=== PATIENT | male | born 1990 | race Caucasian/White ===

== ENCOUNTER 2019-07-24 10:05 | Emergency (ER) | payer BC, SELFPAY ==
--- NOTE | ~2019-07-24 | XR_ITS ---
EXAMINATION: XR chest 2V DATE: 07/24/2019 10:47 INDICATION: Cough and hemoptysis TECHNIQUE: PA and lateral views of the chest are obtained. COMPARISON: 02/17/2014 FINDINGS: The lungs are free of acute opacities. There is no pleural effusion or pneumothorax. The ca rdiomediastinal silhouette is normal. The visualized bones and soft tissues are unremarkable. IMPRESSION: 1. No acute cardiopulmonary abnormality. Reviewed, dictated and finalized at location A.
[2019-07-24 10:20] VITALS: BP 118/72; PULSE 67; RESP 18; TEMP 36.9; O2SAT 100
[2019-07-24 10:48] LABS: Basophils Percent Auto 0.4 % (0.2-1.2); Eosinophils Absolute Auto 0.2 K/mm3 (0-0.3); Eosinophils Percent Auto 4.9 % (0-4.4); Hematocrit 43.3 % (42.0-52.0); Hemoglobin 14.6 g/dL (14.0-18.0); Immature Granulocyte Absolute 0.01 K/mm3 (0.00-0.031); Immature Granulocyte Percent A 0.2 % (0-0.5); Lymphocytes Absolute Auto 0.98 K/mm3 (0.9-3.2); Lymphocytes Percent Auto 20.7 % (18.3-44.2); Mean Corpuscular HGB Conc 33.7 g/dl (32-36); Mean Corpuscular Hemoglobin 30.3 pg (26-34); Mean Corpuscular Volume 89.8 fl (80-100); Mean Platelet Volume 10.8 fl (7.4-10.4); Monocytes Absolute Auto 0.5 K/mm3 (0.1-0.6); Neutrophils Percent Auto 62.8 % (45.5-73.1); Platelet Count Result 158 k/mm3 (150-375); Red Blood Count 4.82 M/mm3 (4.6-6.20); White Blood Count 4.7 K/mm3 (4.5-10.0)
--- NOTE | 2019-07-24 10:52 | ED.GENADULT ---
HPI - General Adult General Chief complaint: Unspecified Stated complaint: COUGH, HEMOPTYSIS Time Seen by Provider: 07/24/19 10:52 Source: patient Mode of arrival: ambulatory Limitations: no limitations History of Present Illness HPI narrative: Pt is a 28 y/o male who presents to the ED with c/o hemoptysis that started this morning. Pt has a H/o asthma and sleep apnea and wears a CPAP at night. He states that he woke up and coughed this morning and about 15 minutes later he started coughing up blood. He states that he had blood in his tissue paper and 6-7 times, but he denies coughing up blood clots. He has not had an episode since this morning. He denies a H/O of TB. Pt states that he sees an ENT sleep specialist for his sleep apnea. Pt denies CP or a fever. MD complaint: Hemoptysis Onset (ago): hour(s) (this morning) Location: mouth Associated symptoms: cough Related Data Allergies Allergy/AdvReac Type Severity Reaction Status Date / Time Penicillins Allergy Mild RASH Unverified 07/24/19 10:25 Review of Systems Review of Systems: All systems reviewed & are unremarkable except as noted in HPI and below Constitutional: Constitutional: Denies fever(s) Cardiovascular: Cardiovascular: Denies chest pain Respiratory: Respiratory: Reports cough and Reports hemoptysis PMFSH Past Medical History Medical History (Updated 07/24/19 @ 12:11 by Nirav Colin MD) Asthma FRANCIS on CPAP Surgical History Surgical History (Updated 07/24/19 @ 11:04 by Gurmeet Whiting) No significant past surgical history Social History Social History (Updated 07/24/19 @ 11:04 by Gurmeet Whiting) Smoking status: Never smoker Gender identity (if verbalized by the patient): Male Exam Const: General: healthy appearing, no acute distress and well developed Nutritional Appearance: well nourished Orientation/consciousness: patient oriented x3 (alert) and Other orientation findings (Alert) Limitations: no limitations HENMT: Head: normocephalic and atraumatic Ears: external ears normal General nose exam: No nasal discharge present and no epistaxis Face and sinus: face symmetric Mouth: Yes lip normal, Yes tongue normal and Yes moist mucous membranes Throat: other (No exudate, no erythema) Eyes: Conjunctivae: conjunctivae normal Sclera: sclerae normal EOM: EOMs intact bilaterally Neck: Neck: full ROM, no lymphadenopathy and supple Thyroid: thyroid normal Chest: Chest palpation & inspection: no tenderness Resp: Effort & Inspection: normal respiratory effort Auscultation: clear to auscultation bilaterally, no rales, no rhonchi, no wheezes and other (breath sounds equal) Cardio: Rate: regular rate Rhythm: regular rhythm Heart sounds: no gallops and no murmurs GI: Inspection: non-distended Back/Spine/Pelvis: Thoracic/Lumbar Spine: thoracic and lumbar spine normal to inspection Skin: General skin exam: normal color and no rashes or lesions noted Neuro: General: patient oriented x3 (alert), moves all extremities and no focal motor deficits Cranial nerves: Yes facial symmetry Speech: normal speech Motor exam (neuro): Motor abnormalities not present Extrem: General: normal to inspection, full ROM and no pedal edema Psych: Affect: normal affect Course Vital Signs Vital signs: Vital Signs Temperature 36.9 C 07/24/19 10:20 Pulse Rate 67 07/24/19 10:20 Respiratory Rate 18 07/24/19 10:20 Blood Pressure 118/72 07/24/19 10:20 Pulse Oximetry 100 07/24/19 10:20 Temperature 36.9 C 07/24/19 10:20 Pulse Rate 60 07/24/19 11:43 Respiratory Rate 16 07/24/19 11:43 Blood Pressure 109/69 07/24/19 11:43 Pulse Oximetry 100 07/24/19 11:43 Medical Decision Making Vital Signs Vital Signs: Vital Signs Temperature 36.9 C 07/24/19 10:20 Pulse Rate 67 07/24/19 10:20 Respiratory Rate 18 07/24/19 10:20 Blood Pressure 118/72 07/24/19 10:20 Pulse Oximetry 100 07/24/19 10:20 Temperature
[2019-07-24 10:58] LABS: Prothrombin Time 13.1 Seconds (11.1-14.7)
[2019-07-24 11:43] VITALS: BP 109/69; PULSE 60; RESP 16; O2SAT 100
== END 2019-07-24 12:48 | disposition home or self-care (01) ==
PROVIDERS: Emergency Provider Emergency Medicine; PCP Family Medicine Adolescent Medicine
DX: R04.2 Hemoptysis (principal); J45.909 Unspecified asthma, uncomplicated; G47.33 Obstructive sleep apnea (adult) (pediatric)
CPT/HCPCS: 36415; 71046; 85025; 85610; 99283

== ENCOUNTER → 2021-10-08 09:56 | Outpatient (CLI) | payer BC, SELFPAY ==
--- NOTE | ~2021-10-08 | XR_ITS ---
XR chest 2V DATE: 10/08/2021 10:18 INDICATION: Orthopnea TECHNIQUE: 2 views COMPARISON: 07/23/2021 view chest FINDINGS: Normal heart size. No hilar or mediastinal enlargement. Bilateral hyperinflation. No pulmon brandy infiltrate or consolidation, pleural effusion or pulmonary vascular congestion or pneumothorax. Mild thoracic scoliosis. IMPRESSION: Bilateral hyperinflation; no active cardiopulmonary disease Reviewed, dictated and finalized at location A.
== END ==
PROVIDERS: PCP Family Medicine Adolescent Medicine; Visit Provider Physician Assistant
DX: R06.01 Orthopnea (principal)
CPT/HCPCS: 71046